=== PATIENT | female | born 1960 | race Caucasian/White ===

== ENCOUNTER 2023-07-08 14:10 | Emergency (ER) | payer BC, MEDICARE ==
[~2023-07-08] VITALS: Ht 170 cm; Wt 77.0 kg
[2023-07-08 14:21] LABS: BASOPHILS # (AUTO) 0.1 10^3/uL (0.0-0.1); BASOPHILS % (AUTO) 1 % (0-10); EOSINOPHILS # (AUTO) 0.3 10^3/uL (0.0-0.3); EOSINOPHILS % (AUTO) 3 % (0-10); HEMATOCRIT 37 % (35-52); HEMOGLOBIN 12.3 g/dL (11.5-16.0); LYMPHOCYTES # (AUTO) 3.1 10^3/uL (1.0-4.0); LYMPHOCYTES % (AUTO) 29 % (12-44); MEAN CORPUSCULAR HEMOGLOBIN 30 pg (25-34); MEAN CORPUSCULAR HGB CONC 33 g/dL (32-36); MEAN CORPUSCULAR VOLUME 90 fL (80-99); MONOCYTES # (AUTO) 0.6 10^3/uL (0.0-1.0); MONOCYTES % (AUTO) 6 % (0-12); NEUTROPHILS # (AUTO) 6.5 10^3/uL (1.8-7.8); NEUTROPHILS % (AUTO) 61 % (42-75); PLATELET COUNT 232 10^3/uL (130-400); WHITE BLOOD COUNT 10.5 10^3/uL (4.3-11.0)
[2023-07-08 14:34] LABS: ALBUMIN 3.9 GM/DL (3.2-4.5); POTASSIUM 3.8 MMOL/L (3.6-5.0)
[2023-07-08 14:35] LABS: CALCIUM 8.5 MG/DL (8.5-10.1)
[2023-07-08 14:37] LABS: TOTAL PROTEIN 7.9 GM/DL (6.4-8.2)
[2023-07-08 14:38] LABS: BILIRUBIN,TOTAL 0.5 MG/DL (0.1-1.0); INR 0.9 (0.8-1.4); PROTHROMBIN TIME PATIENT 12.8 SEC (12.2-14.7)
[2023-07-08 14:40] LABS: CREATININE SERUM 3.05 MG/DL (0.60-1.30); ERYTHROCYTE SEDIMENTATION RATE 37 MM/HR (0-30)
[2023-07-08 14:41] LABS: FIBRIN DEGRADATION PRODUCTS 1.48 UG/ML (0.00-0.49)
[2023-07-08 14:43] LABS: MAGNESIUM 1.7 MG/DL (1.6-2.4)
--- NOTE | 2023-07-08 14:46 | Diagnostic Imaging Report ---
INDICATION: SYNCOPE... COMPARISON: None FINDINGS: Single frontal view of the chest demonstrates normal heart size and pulmonary vascularity. The lungs are well aerated and clear. No large pleural effusion or pneumothorax is seen. The visualized osseous structures show no acute abnormalities. Right internal jugular dual-lumen central venous catheter is noted with tips in right atrium. IMPRESSION: 1. No acute cardiopulmonary process. Dictated by: Dictated on workstation # [id number]
[2023-07-08 14:50] LABS: CREATINE KINASE MB 1.1 NG/ML (<6.6)
--- NOTE | 2023-07-08 14:52 | Diagnostic Imaging Report ---
PROCEDURE: CT head wo r/o stroke. TECHNIQUE: Multiple contiguous axial images were obtained through the brain without the use of intravenous contrast. Auto Exposure Controls were utilized during the CT exam to meet ALARA standards for radiation dose reduction. INDICATION: Syncopal episode following dialysis with dizziness and falling out of chair with loss of consciousness. No priors There are multiple small left greater than right basal ganglier and thalamic low attenuating foci likely on a remote post ischemic basis. No sulcal effacement or cortical edema. No findings of elevated intracerebral pressures. No mass effect. There is no hemorrhage and no acute or abnormal extra-axial fluid collection. There is mild likely atrophic ventriculomegaly. The basilar cisterns are patent. There is no loss of the normal cortical gómez-white matter differentiations. There is no calvarial fracture deformity. No pneumocephalus. No hemo-sinus. No visible facial fracture. IMPRESSION: Some mild atrophy. Atherosclerotic vascular calcifications. Chronic white matter disease and lacunar infarcts in the left greater than right basal ganglia. Their precise acuity indeterminate but visually they appear more likely old. No fracture or hemorrhage. No acute posttraumatic sequelae and no findings of cortical edema. Dictated by: Dictated on workstation # [id number]
--- NOTE | 2023-07-08 14:56 | ED General ---
General Chief Complaint: Dizziness/Syncope Stated Complaint: SYNCOPE Nursing Triage Note: PT PRESENTS TO ED VIA POV FROM DIALYSIS FOR SYNCOPAL EPISODE. PT REPORTS SHE FELT FINE PRIOR TO DIALYSIS. PT STATES SHE HAD APROX 15 MIN LEFT TO HER TREATMENT BEFORE SHE BECAME DIZZY AND SLID OUT OF HER CHAIR AND FELL FACE FORWARD. PT DENIES ANY PAIN BUT DOES NOT REMEBER HITTING HEAD. PT BECAME SICK ON THE WAY TO ED AND VOMITED ONCE. Source of Information: Patient (PT IS POOR HISTORIAN), Family (DAUGHTER IS NOT ABLE TO PROVIDE MUCH HISTORY ) History of Present Illness Date Seen by Provider: Jul 08, 2023 Time Seen by Provider: 14:11 Initial Comments PT ARRIVES VIA POV FROM DIALYSIS--DAUGHTER BROUGHT HER HERE PT STATES THAT SHE HAD ABOUT 15 MINUTES LEFT OF DIALYSIS, AND BEGAN TO FEEL VERY DIZZY AND PASSED OUT SHE FELL FACE FORWARD OUT OF HER CHAIR SHE DENIES ANY PAIN OR INJURY FROM THE EPISODE SHE REFUSED AN AMBULANCE AND HAD HER DAUGHTER BRING HER HERE BY POV FROM [facility] SHE HAD NAUSEA AND VOMITED ON THE WAY HERE SHE DENIES PAIN ANYWHERE NO CHEST PAIN NO HEADACHE NO VISION CHANGES NO PARESTHESIAS OR MOTOR DEFICITS NO PALPITATIONS NO SHORTNESS OF BREATH NO ABDOMINAL PAIN STATES SHE FELT FINE BEFORE DIALYSIS SHE STATES SHE FEELS FINE NOW AND HAS NO SYMPTOMS OF ANY KIND SHE HAS BEEN GETTING DIALYSIS FOR ABOUT 2 MONTHS--HAS RIGHT CENTRAL LINE FOR DIALYSIS LAST Saturday07/04/23, SHE HAD SURGERY AT [facility] TO PUT IN A PERITONEAL DIALYSIS CATHETER SHE DOES NOT KNOW ANY OF HER MEDICATIONS, DID NOT BRING MEDS OR A LIST OF MEDS SHE DOES NOT KNOW WHO DID HER RECENT SURGERY SHE DOES NOT KNOW WHO HER ASSISTANT ACCOUNT MANAGER IS OR WHAT FACILITY HE OR SHE IS ASSOCIATED WITH SHE DOES NOT KNOW WHO HER PRIMARY CARE DR IS STATES SHE SEES SOMEONE IN [place] WITH [facility]. PT DOES NOT LIVE HERE IN [place], AND HAS NEVER BEEN TO THIS FACILITY SHE HAS HTN, STATES SHE IS DIABETIC AND WAS ON INSULIN BUT NOW SHE DOES NOT TAKE ANYTHING FOR DIABETES AND DOES NOT CHECK HER BLOOD SUGAR. SHE CONTINUES TO SMOKE 1 PPD. Allergies and Home Medications Allergies Coded Allergies: No Known Drug Allergies (Unverified , 07/08/23) Review of Systems Review of Systems Constitutional: see HPI, dizziness EENTM: no symptoms reported Respiratory: no symptoms reported Cardiovascular: see HPI, syncope Gastrointestinal: see HPI, nausea, vomiting Genitourinary: no symptoms reported Musculoskeletal: no symptoms reported Skin: no symptoms reported Psychiatric/Neurological: See HPI; Denies Headache Hematologic/Lymphatic: No Symptoms Reported Past [id number]-Nuacdh Hx Patient Social History Tobacco Use?: Yes Tobacco type used: Cigarettes Smoking Status: Current Everyday Smoker Substance use?: No Alcohol Use?: No Pt feels they are or have been: No Past Medical History Surgery/Hospitalization HX: dialysis- mwf, htn, dm, peritoneal dialysis, dialysis port, hyst, gallbladder Surgeries: Yes Abdominal, Dialysis, Gallbladder, Hysterectomy, Oophorectomy Respiratory: No Cardiac: Yes Hypertension Neurological: No Genitourinary: Yes Renal Failure, Dialysis Gastrointestinal: Yes (S/P MAGNUS) Gall Bladder Disease Musculoskeletal: No Endocrine: Yes (NO LONGER TAKING INSULIN OR ANY MEDICATIONS FOR DIALYSIS) Diabetes, Insulin dep HEENT: No Cancer: No Psychosocial: No Integumentary: No Blood Disorders: No Physical Exam Vital Signs Vital Signs - First Documented 07/08/23 14:11 Temp 36.3 Pulse 69 Resp 16 B/P (MAP) 129/70 (89) Pulse Ox 97 Capillary Refill : Less Than 3 Seconds Height, Weight, BMI Height: '" Weight: lbs. oz. kg; 26.00 BMI Method: General Appearance: No Apparent Distress, WD/WN HEENT: PERRL/EOMI Neck: Normal Inspection Respiratory: Normal Breath Sounds, No Accessory Muscle Use, No Respiratory Distress, Other (RIGHT CHEST CENTRAL LINE FOR DIALYSIS) Cardiovascular: Regular Rate, Rhythm, No Edema, No JVD, No Murmur, Normal Peripheral Pulses Gastrointestinal: Non Tender, Soft, Other (SURGICAL SITE TO ABDOMEN WITH [place] SSING IN PLACE--CLEAN/DRY) Extremity: No Pedal Edema Neurologic/Psychiatric: Alert, Oriented x3, No Motor/Sensory Deficits, broadcaster II- XII Norm as Tested, Other (FLAT AFFECT) Skin: Normal Color, Warm/Dry Progress/Results/Core Measures Suspected Sepsis SIRS Temperature: Pulse: 69 Respiratory Rate: 16 Laboratory Tests 07/08/23 14:15: White Blood Count 10.5 Blood Pressure 129 /70 Mean: 89 Laboratory Tests 07/08/23 14:15: Creatinine 3.05H, INR Comment 0.9, Platelet Count 232, Total Bilirubin 0.5 Results/Orders Lab Results Laboratory Tests Test 07/08/23 14:15 Range/Units White Blood Count 10.5 4.3-11.0 10^3/uL Red Blood Count 4.12 3.80-5.11 10^6/uL Hemoglobin 12.3 11.5-16.0 g/dL Hematocrit 37 35-52 % Mean Corpuscular Volume 90 80-99 fL Mean Corpuscular Hemoglobin 30 25-34 pg Mean Corpuscular Hemoglobin Concent 33 32-36 g/dL Red Cell Distribution Width 14.0 10.0-14.5 % Platelet Count 232 130-400 10^3/uL Mean Platelet Volume 10.0 9.0-12.2 fL Immature Granulocyte % (Auto) 1 % Neutrophils (%) (Auto) 61 42-75 % Lymphocytes (%) (Auto) 29 12-44 % Monocytes (%) (Auto) 6 0-12 % Eosinophils (%) (Auto) 3 0-10 % Basophils (%) (Auto) 1 0-10 % Neutrophils # (Auto) 6.5 1.8-7.8 10^3/uL Lymphocytes # (Auto) 3.1 1.0-4.0 10^3/uL Monocytes # (Auto) 0.6 0.0-1.0 10^3/uL Eosinophils # (Auto) 0.3 0.0-0.3 10^3/uL Basophils # (Auto) 0.1 0.0-0.1 10^3/uL Immature Granulocyte # (Auto) 0.1 0.0-0.1 10^3/uL Erythrocyte Sedimentation Rate 37 H 0-30 MM/HR Prothrombin Time 12.8 12.2-14.7 SEC INR Comment 0.9 0.8-1.4 Activated Partial Thromboplast Time 29 24-35 SEC D-Dimer 1.48 H 0.00-0.49 UG/ML Sodium Level 136 135-145 MMOL/L Potassium Level 3.8 3.6-5.0 MMOL/L Chloride Level 98 98-107 MMOL/L Carbon Dioxide Level 23 21-32 MMOL/L Anion Gap 15 H 5-14 MMOL/L Blood Urea Nitrogen 32 H 7-18 MG/DL Creatinine 3.05 H 0.60-1.30 MG/DL Estimat Glomerular Filtration Rate 17 BUN/Creatinine Ratio 10 Glucose Level 240 H 70-105 MG/DL Calcium Level 8.5 8.5-10.1 MG/DL Corrected Calcium 8.6 8.5-10.1 MG/DL Magnesium Level 1.7 1.6-2.4 MG/DL Total Bilirubin 0.5 0.1-1.0 MG/DL Aspartate Amino Transf (AST/SGOT) 27 5-34 U/L Alanine Aminotransferase (ALT/SGPT) 11 0-55 U/L Alkaline Phosphatase 88 40-136 U/L Total Creatine Kinase 39 29-168 U/L Creatine Kinase MB 1.1 <6.6 NG/ML Myoglobin 117.7 H 10.0-92.0 NG/ML Troponin I 0.048 H <0.028 NG/ML C-Reactive Protein High Sensitivity 0.44 0.00-0.50 MG/DL B-Type Natriuretic Peptide 68.7 <100.0 PG/ML Total Protein 7.9 6.4-8.2 GM/DL Albumin 3.9 3.2-4.5 GM/DL My Orders Orders - NAEL CERVANTES DO Ed Iv/Invasive Line Start (07/08/23 14:10) Ekg Tracing (07/08/23 14:10) O2 (07/08/23 14:10) Monitor-Rhythm Ecg Trace Only (07/08/23 14:10) Ct Head Wo-R/O Stroke (07/08/23 14:10) Bnp Russell (07/08/23 14:10) Cbc With Automated Diff (07/08/23 14:10) Comprehensive Metabolic Panel (07/08/23 14:10) Creatine Kinase (07/08/23 14:10) Creatine Kinase Mb (07/08/23 14:10) Hs C Reactive Protein (07/08/23 14:10) Fibrin Degradation Products (07/08/23 14:10) Magnesium (07/08/23 14:10) Protime With Inr (07/08/23 14:10) Partial Thromboplastin Time (07/08/23 14:10) Ua Culture If Indicated (07/08/23 14:10) Erythrocyte Sedimentation Rate (07/08/23 14:10) Myoglobin Serum (07/08/23 14:10) Troponin I Russell (07/08/23 14:10) Chest 1 View, Ap/Pa Only (07/08/23 14:10) Aspirin Chewable Tablet (Aspirin Chewabl (07/08/23 16:30) Vital Signs/I&O 07/08/23 14:11 Temp 36.3 Pulse 69 Resp 16 B/P (MAP) 129/70 (89) Pulse Ox 97 Capillary Refill : Less Than 3 Seconds Blood Pressure Mean: 89 Progress Note : Progress Note VITALS ON ARRIVAL: TEMP 36.3=97.4, HR 69, RR 16, BP 129/70, O2 SAT 97% ON ROOM AIR. GIVEN ASPIRIN LABS: -CBC NORMAL -CMP WITH BUN 32, CR 3.05, GLU 240, OTHERWISE NORMAL -MG 1.7 -TROPONIN 0.048 -BNP 68.7 -PT/PTT/INR 12.8/29/0.9 -D-DIMER 1.48 -CRP 0.44 -SED RATE 32 EKG WITH INFERIOR Q WAVES, NO ACUTE ST SEGMENT CHANGES CXR UNREMARKABLE CT HEAD WITHOUT ANY ACUTE CHANGES VITALS STABLE PT HAD NO COMPLAINTS FOR ENTIRE ER STAY NO PRIOR RECORDS HERE ECG Initial ECG Impression Date: Jul 08, 2023 Initial ECG Impression Time: 14:17 Initial ECG Rate: 69 Initial ECG Rhythm: Normal Sinus Initial ECG Intervals MO 201 QRS 98 QT/QTC 453/472 Initial ECG Impression: Nonspecific Changes (INFERIOR Q-WAVES) Initial ECG Comparisson: No Previous ECG Available Comment INTERPRETED BY ME Diagnostic Imaging Comments CT HEAD--PER RADIOLOGIST REPORT AT 1455 No priors There are multiple small left greater than right basal ganglier and thalamic low attenuating foci likely on a remote post ischemic basis. No sulcal effacement or cortical edema. No findings of elevated intracerebral pressures. No mass effect. There is no hemorrhage and no acute or abnormal extra-axial fluid collection. There is mild likely atrophic ventriculomegaly. The basilar cisterns are patent. There is no loss of the normal cortical gómez-white matter differentiations. There is no calvarial fracture deformity. No pneumocephalus. No hemo-sinus. No visible facial fracture. IMPRESSION: Some mild atrophy. Atherosclerotic vascular calcifications. Chronic white matter disease and lacunar infarcts in the left greater than right basal ganglia. Their precise acuity indeterminate but visually they appear more likely old. No fracture or hemorrhage. No acute posttraumatic sequelae and no findings of cortical edema. CXR--PER RADIOLOGIST REPORT AT 1455 FINDINGS: Single frontal view of the chest demonstrates normal heart size and pulmonary vascularity. The lungs are well aerated and clear. No large pleural effusion or pneumothorax is seen. The visualized osseous structures show no acute abnormalities. Right internal jugular dual-lumen central venous catheter is noted with tips in right atrium. IMPRESSION: 1. No acute cardiopulmonary process. Reviewed: Reviewed by Me Departure Communication (Admissions) 1500--CALLED [facility], MESSAGE LEFT 153--CALLED TIFFANY [facility]ANTLEY HOSPITALIST 1555--SPOKE WITH DR. LEZAMA, HOSPITALIST, ACCEPTS PT FOR ADMIT. NO FURTHER RECOMMENDATIONS AT THIS TIME. Impression Primary Impression: Syncope Additional Impressions: Elevated troponin ESRD (end stage renal disease) on dialysis Diabetes type 2, uncontrolled HTN (hypertension) Disposition: 02 XFER SHT-TRM HOSP Condition: Stable Transfer Transfer Reason: Exceeds level of care (NEED FOR NEPHROLOGY SERVICES UNAVAILABLE HERE) Transfer Facility: [facility] Method of Transfer: EMS Departure-Patient Inst. Referrals: NO,LOCAL PHYSICIAN (PCP/Family) Primary Care Physician NAEL CERVANTES DO Jul 08, 2023 14:55
[2023-07-08] MEDS ORDERED: ASPIRIN 81 MG CHEWABLE TABLET PO ONE (16:30)
[2023-07-08] MEDS ORDERED: APIX5TAB (17:57)
[2023-07-08] MEDS ORDERED: FOLI1TAB33 (17:57)
[2023-07-08] MEDS ORDERED: AMLO-251 (17:57)
[2023-07-08] MEDS ORDERED: BUSP5TAB59 (17:57)
[2023-07-08] MEDS ORDERED: FURO80TA3 (17:57)
[2023-07-08] MEDS ORDERED: CITA20TA9 (17:57)
[2023-07-08] MEDS ORDERED: LOSA25TA41 (17:57)
[2023-07-08] MEDS ORDERED: ONDA4TAB11 (17:57)
[2023-07-08 18:55] VITALS: BP 124/75
== END 2023-07-08 18:55 | disposition short-term general hospital (02) ==
LOC: ER 14:12
DX: E11.22 Type 2 diabetes mellitus with diabetic chronic kidney disease (principal); I12.0 Hypertensive chronic kidney disease with stage 5 chronic kidney disease or end stage renal disease; N18.6 End stage renal disease; R79.89 Other specified abnormal findings of blood chemistry; R55 Syncope and collapse; F17.210 Nicotine dependence, cigarettes, uncomplicated; Z99.2 Dependence on renal dialysis; Z79.4 Long term (current) use of insulin
CPT/HCPCS: 36415; 70450; 71045; 80053; 82550; 82553; 83735; 83874; 83880; 84484; 85025; 85379; 85610; 85652; 85730; 86141; 93005; 93041